=== PATIENT | male | born 1970 | race Caucasian/White ===

== ENCOUNTER 2016-08-14 05:30 | Emergency (ER) | payer MEDICAID ==
[2016-08-14 05:38] VITALS: BP 166/108; PULSE 105; RESP 20; TEMP 98.2; O2SAT 95
--- NOTE | 2016-08-14 05:40 | EDPHY ---
H & P Stated Complaint: trouble sleeping, seizure last night? HPI/ROS: HPI CHIEF COMPLAINT: Medication Refill, I think I was given meth last night, I cant Sleep. HISTORY OF PRESENT ILLNESS: This patient 45-year-old male, significant past medical history for hypertension, normally takes lisinopril 10 mg p.o. daily however has not done so does not have a prescription. He is requesting medication refills lisinopril. Patient tells me he is homeless, he usually drinks alcohol but has not had alcohol in 12 hours. He also states that he thinks he was given methamphetamine last night. He is requesting drug screen for possible methamphetamine. Currently upon arrival to the emergency room he denies any significant complaints other than stating that he was up all night. He thinks he was poison with methamphetamine. Past Medical History: Hypertension Past Surgical History: No recent surgical history Social History: Daily alcohol use, homeless, tobacco use, denies illicit drugs Family History: Noncontributory ROS REVIEW OF SYSTEMS: A comprehensive 10 point review of systems is otherwise negative aside from elements mentioned in the history of present illness. Exam Constitutional appears well nontoxic triage nursing summary reviewed, vital signs reviewed, awake/alert. Noted to be hypertensive upon arrival. Noncompliant with meds. Eyes normal conjunctivae and sclera, EOMI, PERRLA. HENT normal inspection, atraumatic, moist mucus membranes, no epistaxis, neck supple/ no meningismus, no raccoon eyes. Respiratory clear to auscultation bilaterally, normal breath sounds, no respiratory distress, no wheezing. Cardiovascular rate normal, regular rhythm, no murmur, no edema, distal pulses normal. Gastrointestinal soft, non-tender, no rebound, no guarding, normal bowel sounds, no distension, no pulsatile mass. Genitourinary no CVA tenderness. Musculoskeletal no midline vertebral tenderness, full range of motion, no calf swelling, no tenderness of extremities, no meningismus, good pulses, neurovascularly intact. Skin pink, warm, & dry, no rash, skin atraumatic. Neurologic awake, alert and oriented x 3, AAOx3, moves all 4 extremities equally, motor intact, sensory intact, CN II-XII intact, normal cerebellar, normal vision, normal speech. Psychiatric normal mood/affect. Heme/Lymph/Immune no lymphadenopathy. Differential Diagnosis: Includes but is not limited to in a particular order, need for medication refill lisinopril 10 mg, possible methamphetamine ingestion. Medical Decision Making: Plan for patient will refill his lisinopril 10 mg prescription will be provided, also at his request will obtain drug screen urinalysis. Otherwise has no focal medical complaint allow him to be discharged. He understands follow up his primary care doctor. He should be compliant with his lisinopril 10 mg. Source: Patient - Medical/Surgical History Hx Asthma: No Hx Chronic Respiratory Disease: No Hx Diabetes: No Hx Cardiac Disease: No Hx Renal Disease: No Hx Cirrhosis: No Hx Alcoholism: No Hx HIV/AIDS: No Hx Splenectomy or Spleen Trauma: No Other PMH: seizure, hypertension - Social History Smoking Status: Current every day smoker Constitutional: Initial Vital Signs Temperature (C) 36.8 C 08/14/16 05:36 Heart Rate 105 H 08/14/16 05:36 Respiratory Rate 20 08/14/16 05:36 Blood Pressure 166/108 H 08/14/16 05:36 O2 Sat (%) 95 08/14/16 05:36 O2 Delivery Mode Room Air Allergies/Adverse Reactions: No Known Allergies Allergy (Unverified 08/14/16 05:36) Home Medications: Medication Instructions Recorded Lisinopril 10 mg PO DAILY #30 tablet 08/14/16 Departure - Departure Disposition: Home, Routine, Self-Care Clinical Impression: Hypertension Qualifiers: Hypertension type: other secondary hypertension Qualified Code(s): I15.8 - Other secondary hypertension Condition: Good Instructions: Hypertension (ED) Additional Instructions: 1. Stay well-hydrated drink lots of fluids. 2. Take your blood pressure medication as prescribed. 3. Return emergency room if you have any worsening symptoms questions or concerns. Referrals: NONE *PRIMARY CARE P,. [Primary Care Provider] - As per Instructions Prescriptions: Lisinopril 10 mg PO DAILY #30 tablet
[2016-08-14] MEDS ORDERED: CHLORDIAZEPOXIDE 25MG PREPK#6 BTL TAKEHOME ONE ×2 (06:17→06:20)
== END 2016-08-14 06:28 | disposition home or self-care (01) ==
DX: I10 Essential (primary) hypertension (principal); F17.200 Nicotine dependence, unspecified, uncomplicated
CPT/HCPCS: 80305

== ENCOUNTER 2016-08-20 20:25 | Emergency (ER) | payer MEDICAID ==
[2016-08-20] MEDS ORDERED: LORazepam 2 MG/ML INJ IVP ONE ×3 (20:42→21:39)
[2016-08-20] MEDS ORDERED: chlordiazePOXIDE 25 MG CAP PO ONE (20:42)
[2016-08-20] MEDS ORDERED: NS 1,000 ML IV ONE (20:43)
[2016-08-20 21:00] LABS: % IMMATURE GRANULYOCYTES 0.9 % (0.0-1.1); ABSOLUTE IMMATURE GRANULOCYTES 0.14 10^3/uL (0.00-0.10); ADD DIFF? NO; ADD MORPH? NO; ADD SCAN? NO; ATYPICAL LYMPHOCYTE FLAG 10 (0-99); FRAGMENT RBC FLAG 0 (0-99); LEFT SHIFT FLG 10 (0-99); LIPEMIA HEMOLYSIS FLAG 80 (0-99); MEAN CELL HEMOGLOBIN 35.8 pg (27.9-34.1); MEAN CELL HEMOGLOBIN CONCENTR. 33.3 g/dL (32.4-36.7); MEAN CELL VOLUME 107.4 fL (81.5-99.8); MEAN PLATELET VOLUME 10.7 fL (8.7-11.7); PLATELET CLUMPS FLAG 0 (0-99); PLATELET COUNT 228 10^3/uL (150-400); RED BLOOD CELL COUNT 4.19 10^6/uL (4.40-6.38); RED CELL DISTRIBUTION WIDTH 14.5 % (11.5-15.2)
[2016-08-20 21:19] LABS: ALANINE AMINOTRANSFERASE 93 IU/L (21-72); ALBUMIN 5.1 g/dL (3.5-5.0); ALKALINE PHOSPHATASE 82 IU/L (38-126); ANION GAP 20 mEq/L (8-16); ASPARTATE AMINOTRANSFERASE 81 IU/L (17-59); BILIRUBIN,TOTAL 1.9 mg/dL (0.1-1.4); BILIRUBIN-CONJUGATED 0.7 mg/dL (0.0-0.5); BILIRUBIN-UNCONJUGATED 1.2 mg/dL (0.0-1.1); CALCIUM 10.9 mg/dL (8.5-10.4); CARBON DIOXIDE 18 mEq/l (22-31); CHLORIDE 103 mEq/L (97-110); CREATININE 1.2 mg/dL (0.7-1.3); GLOMERULAR FILTRATION RATE > 60; GLUCOSE 98 mg/dL (70-100); MAGNESIUM 1.8 mg/dL (1.6-2.3); POTASSIUM 4.3 mEq/L (3.5-5.2); SODIUM 141 mEq/L (134-144); TOTAL PROTEIN 8.4 g/dL (6.3-8.2)
--- NOTE | 2016-08-20 22:50 | EDPHY ---
H & P Stated Complaint: concerned about elevated bp, out of bp meds, pt says he's w/d from etoh - Medical/Surgical History Hx Asthma: No Hx Chronic Respiratory Disease: No Hx Diabetes: No Hx Cardiac Disease: Yes Hx Renal Disease: No Hx Cirrhosis: No Hx Alcoholism: Yes Hx HIV/AIDS: No Hx Splenectomy or Spleen Trauma: No Other PMH: seizure, hypertension, etoh abuse - Social History Smoking Status: Current every day smoker HPI/ROS: Chief complaint: Alcohol withdrawal History of present illness: This is a 46-year-old male who presents to the emergency department concerned he is going through alcohol withdrawal. Patient reports a history of alcohol abuse. His last drink was earlier today. He is now starting to feel shaky and is having muscle cramps. He feels like this is similar to episodes of withdrawal in the past. Further he is concerned that his blood pressure is significantly elevated. He does have a history of high blood pressure. He is not currently taking lisinopril which he normally takes for his high blood pressure. He was seen in this emergency room recently for a refill of his high blood pressure medication but states he lost the prescription. Patient denies other associated signs or symptoms. Review of systems: A 10 point review of systems was obtained and other than described above was negative (Zeeshan Carranza) - Physical Exam Exam: General Appearance: Alert, mild tremulousness. Eyes: Pupils equal and round no pallor or injection. ENT, Mouth: Mucous membranes moist. Respiratory: There are no retractions, lungs are clear to auscultation. Cardiovascular: Regular rate and rhythm. Gastrointestinal: Abdomen is soft and nontender, no masses, bowel sounds normal. Neurological: Alert and oriented. Strength and sensation intact and symmetrical. Skin: Warm and dry, no rashes. Musculoskeletal: Neck is supple nontender. Extremities are symmetrical, full range of motion. Psychiatric: Patient is oriented X 3, there is no agitation. (Zeeshan Carranza) Constitutional: Initial Vital Signs Temperature (C) 36.5 C 08/20/16 20:33 Heart Rate 129 H 08/20/16 20:33 Respiratory Rate 20 08/20/16 20:33 Blood Pressure 178/118 H 08/20/16 20:33 O2 Sat (%) 93 08/20/16 20:33 O2 Delivery Mode Room Air Allergies/Adverse Reactions: No Known Allergies Allergy (Verified 08/20/16 20:36) Home Medications: Medication Instructions Recorded Lisinopril 10 mg PO DAILY #30 tablet 08/14/16 Lisinopril 10 mg PO DAILY #14 tablet 08/20/16 Medical Decision Making ED Course/Re-evaluation: Patient is discussed with my secondary supervising physician Dr. Migdalia Wu. Patient presents to the emergency department concerned he is withdrawing from alcohol. On presentation he is tachycardic and hypertensive. Baseline blood studies are obtained. Patient is IV hydrated and treated with oral Librium and IV Ativan. He has significant improvement in symptoms. He does remain mildly tachycardic. In further discussion with him he does state he has been using methamphetamines today. His blood pressure has improved. I will refill a short course of lisinopril. [facility] would [facility] to [facility] going through withdrawal and he is sent there. He is asked to follow up with a primary care doctor after the fact for further evaluation and care. Return precautions are given. Patient voiced understanding and agreement with plan. ( Zeeshan Carranza) Differential Diagnosis: Included but not limited to alcohol intoxication, alcohol withdrawal, polysubstance abuse, hypertension, hypertensive urgency, hypertensive emergency (Zeeshan Carranza) Other Provider: The patient was evaluated and managed by the Physician Human Resources Executive Assistant/ Nurse Practitioner. I discussed the patient's presentation and course with the midlevel provider with them and agree with the evaluation. My co-signature indicates that I have reviewed this chart and I agree with the findings and plan of care as documented. I am the secondary supervising physician. (Migdalia Wu) - Data Points Laboratory Results: Laboratory Results 08/20/16 20:53 08/20/16 20:53 Medications Given: Discontinued Medications Chlordiazepoxide (Librium 25 Mg Prepack#6) 1 btl TAKEHOME EDNOW ONE Stop: 08/20/16 23:13 Last Admin: 08/20/16 23:15 Dose: 1 btl Chlordiazepoxide HCl (Librium) 50 mg PO EDNOW ONE Stop: 08/20/16 20:43 Last Admin: 08/20/16 20:55 Dose: 50 mg Sodium Chloride (Ns) 1,000 mls @ 0 mls/hr IV ONCE ONE; Wide Open PRN Reason: Protocol Stop: 08/20/16 20:44 Last Admin: 08/20/16 20:55 Dose: 1,000 mls Lorazepam (Ativan Injection) 1 mg IVP EDNOW ONE Stop: 08/20/16 20:43 Last Admin: 08/20/16 20:55 Dose: 1 mg Lorazepam (Ativan Injection) 1 mg IVP EDNOW ONE Stop: 08/20/16 21:11 Last Admin: 08/20/16 21:14 Dose: 1 mg Lorazepam (Ativan Injection) 1 mg IVP EDNOW ONE Stop: 08/20/16 21:40 Last Admin: 08/20/16 21:48 Dose: 1 mg Departure - Departure Disposition: Home, Routine, Self-Care Clinical Impression: Methamphetamine abuse Alcohol withdrawal Qualifiers: Complication of substance-induced condition: uncomplicated Qualified Code(s): F10.230 - Alcohol dependence with withdrawal, uncomplicated Hypertension Qualifiers: Hypertension type: unspecified secondary hypertension Qualified Code(s): I15.9 - Secondary hypertension, unspecified Condition: Good Instructions: Chlordiazepoxide (By mouth), Methamphetamine Abuse (ED), Alcohol Withdrawal (ED), Hypertension (ED) Additional Instructions: Follow-up with a primary care doctor for continued evaluation and care If symptoms worsen or new symptoms develop return to the emergency room for recheck Referrals: NONE *PRIMARY CARE P,. [Primary Care Provider] - As per Instructions [facility],. [Clinic] - As per Instructions Prescriptions: Lisinopril 10 mg PO DAILY #14 tablet
--- NOTE | 2016-08-20 22:56 | CPEKG ---
Heart Rate: 112 RR Interval: 536 P-R Interval: 140 QRSD Interval: 96 QT Interval: 352 QTC Interval: 481 P [place]: -7 QRS [place]: -25 T Wave [place]: -4 EKG Severity - ABNORMAL ECG - EKG Impression: SINUS TACHYCARDIA EKG Impression: BORDERLINE LEFT AXIS DEVIATION EKG Impression: BORDERLINE PROLONGED QT INTERVAL EKG Impression: Lead malplacement. EKG Impression: see ekg of [id number] Electronically Signed By: Migdalia Wu 21-Aug-2016 00:42:17
[2016-08-20] MEDS ORDERED: CHLORDIAZEPOXIDE 25MG PREPK#6 BTL TAKEHOME ONE (23:12)
[2016-08-20 23:31] VITALS: BP 133/83; PULSE 108; RESP 15; TEMP 98.2; O2SAT 95
--- NOTE | 2016-08-22 07:43 | CPEKG ---
Heart Rate: 111 RR Interval: 541 P-R Interval: 148 QRSD Interval: 98 QT Interval: 356 QTC Interval: 484 P [place]: 17 QRS [place]: -18 T Wave [place]: 28 EKG Severity - BORDERLINE ECG - EKG Impression: SINUS TACHYCARDIA EKG Impression: BORDERLINE LEFT AXIS DEVIATION EKG Impression: BORDERLINE PROLONGED QT INTERVAL Electronically Signed By: Tico Byrd 22-Aug-2016 15:52:58
== END 2016-08-20 23:35 | disposition home or self-care (01) ==
DX: F10.230 Alcohol dependence with withdrawal, uncomplicated (principal); E86.9 Volume depletion, unspecified; I10 Essential (primary) hypertension; F15.10 Other stimulant abuse, uncomplicated; F17.200 Nicotine dependence, unspecified, uncomplicated
CPT/HCPCS: 96374; J2060